=== PATIENT | female | born 1955 | race Caucasian/White ===

== ENCOUNTER 2019-01-06 07:21 | Day surgery (SDC) | payer BC ==
[~2019-01-06] VITALS: Ht 160 cm; Wt 87.7 kg
[~2019-01-06 07:21] MED LIST: 8HR ARTHRITIS650 M1 PO; CENTRUM ADULTS1 EACH PO; IBUP800 PO; PRAVASTATIN SOD10 MG PO; PROAIR RESPICL90 MCG INH; VARE1 PO; ZYRTEC10 M1 PO
--- NOTE | 2019-01-06 10:49 | NUR ---
01/06/19 1049 Lisette Day IV DC'D BY JAMI, LUCA AND DERREK PUT ON IV SITE. PT SAID "I WAS TRYING TO HELP YOU." PT STABLE.
== END 2019-01-06 10:45 | disposition home or self-care (01) ==
LOC: ORSCSDS 07:21
PROVIDERS: Student in an Organized Health Care Education/Training Program
PROC: 0DBL8ZX Excision of Transverse Colon, Via Natural or Artificial Opening Endoscopic, Diagnostic (ICD-10-PCS; principal; 2019-01-06 09:00)
PROC: 0DBH8ZX Excision of Cecum, Via Natural or Artificial Opening Endoscopic, Diagnostic (ICD-10-PCS; principal; 2019-01-06 09:00)
PROC: 0DBP8ZX Excision of Rectum, Via Natural or Artificial Opening Endoscopic, Diagnostic (ICD-10-PCS; principal; 2019-01-06 09:00)
PROC: 0DBN8ZX Excision of Sigmoid Colon, Via Natural or Artificial Opening Endoscopic, Diagnostic (ICD-10-PCS; principal; 2019-01-06 09:00)
DX: Z12.11 Encounter for screening for malignant neoplasm of colon (principal); D12.0 Benign neoplasm of cecum; D12.3 Benign neoplasm of transverse colon; K62.1 Rectal polyp; K64.4 Residual hemorrhoidal skin tags; K64.8 Other hemorrhoids; K57.30 Diverticulosis of large intestine without perforation or abscess without bleeding; J44.9 Chronic obstructive pulmonary disease, unspecified; F17.210 Nicotine dependence, cigarettes, uncomplicated; Z79.899 Other long term (current) drug therapy
CPT/HCPCS: 88305; J7120

== ENCOUNTER → 2021-03-02 | Outpatient (CLI) | payer BC ==
[2021-03-04 16:08] LABS: HPV 16 Negative (Negative); HPV 18 Negative (Negative); HPV OTHER HR TYPES Negative (Negative)
== END ==
LOC: LAB SHORT 13:55
PROVIDERS: Nurse Practitioner Family
DX: Z01.419 Encounter for gynecological examination (general) (routine) without abnormal findings (principal)
CPT/HCPCS: 87624; G0145